=== PATIENT | female | born 1980 | race Caucasian/White ===

== ENCOUNTER 2016-05-28 10:55 | Observation (INO) | payer BC, OTHER ==
[~2016-05-28 10:55] MED LIST: DEXAMETHASONE 10 MG/ML VIAL IV ONE; ceFAZolin 2 GM/DEXTROSE 100 ML IV ONE
[2016-05-28] MEDS ORDERED: LIDOCAINE 1% 5 ML SDV ONE (11:30)
[2016-05-28] MEDS ORDERED: DEXAMETHASONE 10 MG/ML VIAL ONE (11:30)
[2016-05-28] MEDS ORDERED: CEFAZOLIN 1 GM/DEXTROSE/50 ML BAG IV ONE (11:30)
[2016-05-28] MEDS ORDERED: ALBUTEROL 60 PUFFS/8 GM MDI IH ONE ×2 (12:11→12:30)
[2016-05-28] MEDS ORDERED: LIDOCAINE 1% 5 ML SDV ID PRN (12:19)
[2016-05-28] MEDS ORDERED: LR 1,000 ML IV ONE (12:19)
[2016-05-28] MEDS ORDERED: PROPOFOL 200 MG/20 ML VIAL ONE ×2 (12:22→13:19)
[2016-05-28] MEDS ORDERED: fentaNYL 250 MCG/5 ML INJ ONE (12:22)
[2016-05-28] MEDS ORDERED: ROCURONIUM 50 MG/5 ML VIAL ONE (12:22)
[2016-05-28] MEDS ORDERED: MIDAZOLAM 2 MG/2 ML VIAL ONE (12:26)
[2016-05-28] MEDS ORDERED: SKIN ADHESIVE (DERMABOND) 1 EACH TP ONE (12:33)
[2016-05-28] MEDS ORDERED: LIDO/EPI 1% **Not for Epidural 20 ML MDV ONE (12:35)
[2016-05-28] MEDS ORDERED: fentaNYL 100 MCG/2 ML INJ ONE ×2 (14:31→16:11)
[2016-05-28] MEDS ORDERED: ACETAMINOPHEN 325 MG TAB PO PRN (15:54)
[2016-05-28] MEDS ORDERED: ONDANSETRON 4 MG/2 ML VIAL IVP PRN (15:54)
[2016-05-28] MEDS ORDERED: LORazepam 1 MG TAB PO PRN (16:02)
[2016-05-28] MEDS ORDERED: ZOLPIDEM TARTRATE 5 MG TAB PO PRN (16:05)
--- NOTE | 2016-05-28 16:10 | POSTOPPROG ---
Post Op Note Date of Operation: 05/28/16 Surgeon: Анна Lennon Loom Operator: Debbie Diego Anesthesia: GET(General Endotracheal) Pre-op Diagnosis: right parotid tumor Post-op Diagnosis: same Indication: removal of tumor Procedure: right superficial parotidectomy with facial nerve monitoring Inf/Abcess present in the surg proc area at time of surgery?: No Depth: Deep Incisional (Fascial) EBL: Minimal Complications: none Drains: Arun Pollack (to bulb suction - may need to be advanced into wound by 2mm if not holding suction)
[2016-05-28] MEDS ORDERED: oxyCODONE IR 5 MG TAB ONE (16:58)
--- NOTE | 2016-05-28 18:41 | GOP ---
[f rep st] OPERATIVE REPORT DATE OF OPERATION: 05/28/2016 SURGEON: Анна Lennon MD UNDERWRITING MANAGER: Debbie Diego MD. PREOPERATIVE DIAGNOSIS: Right parotid mass. POSTOPERATIVE DIAGNOSIS: Right parotid mass. PROCEDURE PERFORMED: 1. Right superficial parotidectomy with facial nerve dissection and preservation. 2. Facial nerve monitoring times 2-1/2 hours. FINDINGS: SPECIMENS: Right parotid gland with mass. ESTIMATED BLOOD LOSS: Less than 20 cc. INDICATIONS: The patient is a 35-year-old female with a history of several months of a bump at the right angle of the mandible. 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 Risks, benefits, and alternatives of superficial parotidectomy with facial nerve dissection were discussed with the patient, and she opted to proceed forward. DESCRIPTION OF PROCEDURE: The patient was met in preoperative holding, and informed consent was confirmed. The patient was brought to the operating room. She underwent induction of general anesthesia with placement of endotracheal tube without difficulty. She was positioned with a small shoulder roll with gentle neck extension, and rotated 90 degrees to the operating surgeon and otherwise positioned, prepped, and draped in the standard fashion. A 4-lead facial nerve monitor was placed and confirmed to be working properly. A modified Patrick incision, starting at the superior portion of the tragus and extending 2 cm below her mandible was infiltrated with 6 cc of 1% lidocaine with 1:100,000 epinephrine. 15-blade scalpel was utilized to incise the skin, and sharp dissection with both the scalpel as well as the facial scissors was then used to elevate the parotid flap. Next, the tragal pointer, and the anterior border of the SCM were delineated using a combination of blunt and sharp dissection, and the omohyoid was then identified to determine the level of the depth of the fascial nerve trunk. Using a combination of blunt and sharp dissection, I then dissected down to the area where the facial nerve would be exiting, and this was then identified using blunt dissection in the direction of the facial nerve trunk. The pes was noted quite readily, and the superior portion of the facial nerve was only dissected minimally, given the relatively low location of the mass. The lower branches of the facial nerve were then dissected out using Schnidt forceps, and the parotid was then elevated off the lateral face of the facial nerve using the Harmonic scalpel for hemostasis throughout. Once the tumor was delivered in its entirety with a cuff of normal parotid tissues, it was passed off as a specimen for permament processing. The facial nerve was then stimulated and noted to be intact, both physiologically and visibly. Next, the wound was then copiously irrigated with warm sterile saline solution, and a fully channeled 7 Chon drain was then placed in the posterior incision in the neck, and then laid into the parotid bed. This was affixed using a 3-0 nylon suture. The wound was then closed in layers with deep dermal stitches using 4-0 Monocryl in a plastic fashion, and Dermabond on top. She was then cleansed of any excess preparatory iodine, and all the facial nerve monitors were removed. Total nerve monitoring time was 2-1/2 hours. At this point, she was turned back to Anesthesia for wake up. At the end of this procedure, all sponge, needle, and instrument counts were correct. I personally performed all critical portions of this case with the assistance of Dr. Diego throughout the entirety of the case. FLUIDS: 1 L of crystalloid. /[id number]/MODL MTDD
[2016-05-28] MEDS: oxyCODONE IR 5 MG TAB PO PRN ×3 (18:46→23:35)
[2016-05-29] MEDS: oxyCODONE IR 5 MG TAB PO PRN ×3 (03:52→12:55)
[2016-05-29] MEDS ORDERED: FLU VACC QS 2016-17(3-64YR)/PF 0.5 ML SYR (FLUARIX QUAD) IM ONE (07:37)
[2016-05-29 08:21] VITALS: BP 92/47; PULSE 74; RESP 16; TEMP 98.1; O2SAT 99
--- NOTE | 2016-05-29 16:24 | GDS ---
[f rep st] DISCHARGE SUMMARY ADMISSION STATUS: 23-hour observation. ADMITTING DIAGNOSIS: Status post right parotidectomy. DISCHARGE DIAGNOSIS: Status post right parotidectomy. DISCHARGE MEDICATIONS: Include all home medications as usually prescribed, as well as oxycodone 5-10 mg by mouth every 4 hours as needed for pain. ALLERGIES: None. HOSPITAL COURSE: The patient underwent right superficial parotidectomy with facial nerve preservatio n and dissection, as well as facial nerve monitoring on May 28, 2016. She tolerated the procedure well, and was monitored overnight for pain control as well as drain management. She had no issues o vernight, remained afebrile with good pain control. The drain discharged approximately 30 cc over a single shift and was, therefore, removed in the morning, on postoperative day 1. On examination, her facial nerve was fully intact. The incision was clean, dry, and intact, and there were no fluid col lections. Despite preservation of the greater auricular nerve, the right ear was still reported to kianna mckenzie numb. DISPOSITION: Home without services. INSTRUCTIONS: The patient was previously given all instructions regarding management of the surgical site and incision. FOLLOWUP: The patient will follow up next week for routine postoperative care. /[id number]/MODL
== END 2016-05-29 13:38 | disposition home or self-care (01) ==
LOC: F3E 10:55
PROVIDERS: ADMIT Otolaryngology; ATTEND Otolaryngology
PROC: 0CT80ZZ Resection of Right Parotid Gland, Open Approach (ICD-10-PCS; principal; 2016-05-28 12:15)
DX: D11.9 Benign neoplasm of major salivary gland, unspecified (principal); J45.909 Unspecified asthma, uncomplicated; Z87.891 Personal history of nicotine dependence; Z23 Encounter for immunization
CPT/HCPCS: 42420; 90471; G0378; G0008; J0171; J0690; J2250; J2704; J3010

== ENCOUNTER → 2017-03-24 | Outpatient (CLI) | payer BC | LOC: FIMAGING 12:08 | PROVIDERS: ATTEND Obstetrics & Gynecology | DX: O34.219 Maternal care for unspecified type scar from previous cesarean delivery (principal); O09.521 Supervision of elderly multigravida, first trimester; O99.341 Other mental disorders complicating pregnancy, first trimester; Z3A.12 12 weeks gestation of pregnancy ==